=== PATIENT | female | born 1970 | race Two or more races ===

== ENCOUNTER 2017-03-07 21:09 | Emergency (ER) | payer OTHER ==
[2017-03-07 21:23] VITALS: BP 117/81; PULSE 72; TEMP 98.3; BMI 23.8
--- NOTE | 2017-03-07 22:10 | PDOC ---
History of Present Illness - General Chief Complaint: Injury Stated Complaint: PAIN Time Seen by Provider: 03/07/17 21:29 History Source: Patient Exam Limitations: No Limitations - History of Present Illness Initial Comments: 03/07/17 22:57 This is a 46-year-old female who comes in complaining of pain in her back. Patient said that earlier in the day approximately 12 noon she was vacuuming the stairs when she lost her balance slipped fell injuring her back. Patient said she may have passed out briefly from the pain but thinks she did not hit her head. Patient denies any headache, head pain, blurry vision or nausea. Patient denies any neck pain. Patient's only complaint of pain in her mid back and lower back area. Patient took ibuprofen 800 mg 2 earlier prior to coming in. Patient does not speak Lithuanian so national facilities manager services was used for the interpretation. PAST MEDICAL HISTORY: As per history of present illness PAST SURGICAL HISTORY: no significant history FAMILY HISTORY: no pertinant history SOCIAL HISTORY: Pt lives with family and is employed. MEDICATIONS: reviewed ALLERGIES: As per nursing notes Review of Systems General: No fevers or chills, no weakness, no weight loss HEENT: No change in vision. No sore throat,. No ear pain CardioVascular: No chest pain or shortness of breath Respiratory:No cough, or wheezing. Gastrointestinal: no nausea, vomitting, diarrhea or constipation, No rectal bleeding Genitourinary: No dysuria, hematuria, or frequency Musculoskeletal: Back pain as per history of present illness Neurologic: No headache, vertigo, dizziness or loss of consciousness Psychiatric: nor depression Skin: No rashes or easy bruising Endocrine: no increased thirst or abnormal weight change Allergic: no skin or latex allergy All other systems reviewed and normal GENERAL: The patient is awake, alert, and fully oriented, in no acute distress. HEAD: Normal with no signs of trauma. EYES: Pupils equal, round and reactive to light, extraocular movements intact, sclera anicteric, conjunctiva clear. BACK: There is moderate pain on palpation of the mid back thoracic area as well as lumbar area. Pain is more pronounced on the left with some left paraspinal discomfort on palpation. In addition to that there is also some tenderness on palpation of the left posterior ribs. In the area of the mid chest CHEST: There are good breath sounds bilateral however discomfort is exacerbation of the deep breath. EXTREMITIES: Normal range of motion, no edema. NEUROLOGICAL: Normal speech, normal gait. PSYCH: Normal mood, normal affect. SKIN: Warm, Dry, normal turgor, no rashes or lesions noted. 03/07/17 23:34 X-ray was read and reviewed by the radiologist there is no acute pathology of the chest, ribs, thoracic or lumbar spine. Assessment and plan: This is a 46-year-old female who fell while vacuuming the stairs injuring her back. Patient came in complaining of back pain. Patient had x-rays of her back and ribs that were negative for any acute fractures or pathology. Patient given prescription for Naprosyn and the will follow-up with her primary care doctor Past History - Past Medical History Allergies/Adverse Reactions: Allergies Allergy/AdvReac Type Severity Reaction Status Date / Time Beef Containing Products Allergy Mild Itching Verified 08/05/16 12:16 EGGPLANT Allergy Mild Itching Uncoded 08/05/16 12:16 Home Medications: Ambulatory Orders Calcium Carbonate/Vitamin D3 [Calcium 600-Vit D3 400 Tablet] 1 each PO DAILY 08/11 Famotidine [Heartburn Prevention] 10 mg PO ONCE 08/05/16 Ibuprofen [Motrin -] 800 mg PO TID PRN 08/05/16 Levothyroxine [Synthroid -] 125 mcg PO DAILY 08/05/16 Loratadine [Claritin -] 10 mg PO ONCE 08/05/16 Omeprazole 40 mg PO DAILY 08/05/16 Cyclobenzaprine HCl [Flexeril 10 mg] 10 mg PO TID #21 tablet 03/07/17 Estradiol 03/07/17 Naproxen [Naprosyn -] 500 mg PO BID #14 tablet 03/07/17 GI Disorders: Yes (HEARTBURN) Thyroid Disease: Yes - Psycho/Social/Smoking Cessation Hx Anxiety: No Suicidal Ideation: No Smoking History: Never smoked Hx Alcohol Use: No Drug/Substance Use Hx: No Substance Use Type: None *Physical Exam - Vital Signs Last Vital Signs Temp Pulse Resp BP Pulse Ox 98.3 F 72 18 117/81 97 03/07/17 21:20 03/07/17 21:20 03/07/17 21:20 03/07/17 21:20 03/07/17 21:20 *DC/Admit/Observation/Transfer Diagnosis at time of Disposition: Contusion of rib, Fall (on) (from) other stairs and steps, initial encounter Back pain Qualifiers: Back pain location: thoracic back pain Chronicity: acute Back pain laterality: left Qualified Code(s): M54.6 - Pain in thoracic spine - Discharge Dispostion Disposition: HOME Condition at time of disposition: Stable Admit: No - Patient Instructions Additional Instructions: For the pain take Naprosyn 1 tablet twice a day. In addition to the Naprosyn take Flexeril one tablet 3 times a day for muscle spasm. The Flexeril will make you tired so try to limit it to the nighttime hours. You can take it during the day but do not operate a motor vehicle or do anything that requires your concentration. Return to the emergency department immediately with ANY new, persistent or worsening symptoms. Continue any medications as previously prescribed by your physician. You should follow up with your primary doctor as soon as possible regarding today's emergency department visit. . Please make sure your doctor reviews the results of your emergency evaluation. Thank you for coming to the Emergency Department today for your care. It was a pleasure to see you today. Please note that your evaluation is INCOMPLETE until you follow-up with your doctor.
[2017-03-07] MEDS ORDERED: ACETAMINOPHEN 500 MG TABLET (FP) PO ONE (22:34)
[2017-03-07] MEDS ORDERED: ACETAMINOPHEN 325 MG TABLET (FP) ONE (22:36)
== END 2017-03-07 23:42 | disposition home or self-care (01) ==
LOC: FER 21:09
PROC: 3E0333Z Introduction of Anti-inflammatory into Peripheral Vein, Percutaneous Approach (ICD-10-PCS; principal; 2017-03-07)
DX: S20.219A Contusion of unspecified front wall of thorax, initial encounter (principal); M54.6 Pain in thoracic spine; W10.9XXA Fall (on) (from) unspecified stairs and steps, initial encounter; Y93.89 Activity, other specified; Y92.009 Unspecified place in unspecified non-institutional (private) residence as the place of occurrence of the external cause
CPT/HCPCS: 71010-TC; 71101-TC; 72070-TC; 72100-TC; 96374; 99282-25

== ENCOUNTER 2019-04-27 21:53 | Emergency (ER) | payer OTHER ==
[2019-04-27 22:12] VITALS: BP 120/72; PULSE 65; TEMP 98.7; BMI 23.9
[2019-04-27] MEDS ORDERED: KETOROLAC TROMETHAMINE 60 MG/2 ML VIAL IM ONE (22:33)
[2019-04-27] MEDS ORDERED: KETOROLAC TROMETHAMINE 60 MG/2 ML VIAL ONE (22:42)
--- NOTE | 2019-04-27 23:55 | PDOC ---
Documentation entered by Ozzie Elise SCRIBE, acting as scribe for Alyx Marshall MD. Alyx Marshall MD: This documentation has been prepared by the Arik limon Juan Manue, SCRIBE, under my direction and personally reviewed by me in its entirety. I confirm that the documentation accurately reflects all work, treatment, procedures, and medical decision making performed by me. History of Present Illness - General Chief Complaint: Pain, Acute Stated Complaint: PAIN BUTTOCKS RADIATING DOWN RIGHT LEG History Source: Patient, Family Exam Limitations: No Limitations - History of Present Illness Initial Comments: 04/27/19 22:40 The patient is a 48 year old female presenting with her , with a significant past medical history of hypothyroidism s/p surgery, who presents to the ED complaining of right lower back pain radiating down her right leg. She reports that she has had this pain for the past 2 years but exacerbated today. She notes that she took Ibuprofen with no relief of her symptoms today. She describes the pain as ranging from mild to moderate. She denies any kind of fall , injury or lifting of heavy objects. The patient denies chest pain, shortness of breath, headache and dizziness. Allergies: Eggplant, beef containing products Past surgical history: Thyroid Surgery (3 years ago) Social History: No alcohol, tobacco or drug use reported GENERAL/CONSTITUTIONAL: No fever or chills. No weakness. HEAD, EYES, EARS, NOSE AND THROAT: No change in vision. No ear pain or discharge. No sore throat. CARDIOVASCULAR: No chest pain or shortness of breath. RESPIRATORY: No cough, wheezing, or hemoptysis. GASTROINTESTINAL: No nausea, vomiting, diarrhea or constipation. GENITOURINARY: No dysuria, frequency, or change in urination. MUSCULOSKELETAL: (+) Right buttocks pain with radiation down the leg to the knee. No joint or muscle swelling. No neck pain. SKIN: No rash NEUROLOGIC: No headache, vertigo, loss of consciousness, or change in strength/ sensation. ENDOCRINE: No increased thirst. No abnormal weight change. HEMATOLOGIC/LYMPHATIC: No anemia, easy bleeding, or history of blood clots. ALLERGIC/IMMUNOLOGIC: No hives or skin allergy. GENERAL: Awake, alert, and fully oriented, in no acute distress HEAD: No signs of trauma EYES: PERRLA, EOMI, sclera anicteric, conjunctiva clear ENT: Auricles normal inspection, hearing grossly normal, nares patent, oropharynx clear without exudates. Moist mucosa NECK: Normal ROM, supple, no lymphadenopathy, JVD, or masses LUNGS: Breath sounds equal, clear to auscultation bilaterally. No wheezes, and no crackles HEART: Regular rate and rhythm, normal S1 and S2, no murmurs, rubs or gallops ABDOMEN: Soft, nontender, normoactive bowel sounds. No guarding, no rebound. No masses EXTREMITIES: Normal range of motion, no edema. No clubbing or cyanosis. No cords, erythema, or tenderness NEUROLOGICAL: Cranial nerves II through XII grossly intact. Normal speech, normal gait SKIN: Warm, Dry, normal turgor, no rashes or lesions noted. Past History - Past Medical History Allergies/Adverse Reactions: Allergies Allergy/AdvReac Type Severity Reaction Status Date / Time Beef Containing Products Allergy Mild Itching Verified 04/27/19 21:55 EGGPLANT Allergy Mild Itching Uncoded 08/05/16 12:16 Home Medications: Ambulatory Orders Calcium Carbonate/Vitamin D3 [Calcium 600-Vit D3 400 Tablet] 1 each PO DAILY 08/11 Famotidine [Heartburn Prevention] 10 mg PO ONCE 08/05/16 Levothyroxine [Synthroid -] 125 mcg PO DAILY 08/05/16 Loratadine [Claritin -] 10 mg PO ONCE 08/05/16 Omeprazole 40 mg PO DAILY 08/05/16 Diclofenac Sodium 75 mg PO BID PRN #20 tablet. 04/27/19 Tizanidine HCl 2 mg PO TID PRN #12 tablet 04/27/19 COPD: No GI Disorders: Yes (HEARTBURN) Thyroid Disease: Yes - Suicide/Smoking/Psychosocial Hx Smoking History: Never smoked Have you smoked in the past 12 months: No Information on smoking cessation initiated: No Hx Alcohol Use: No Drug/Substance Use Hx: No Substance Use Type: None *Physical Exam - Vital Signs Last Vital Signs Temp Pulse Resp BP Pulse Ox 98.7 F 65 17 120/72 98 04/27/19 22:06 04/27/19 22:06 04/27/19 22:06 04/27/19 22:06 04/27/19 22:06 ED Treatment Course - Medications Given in the ED: ED Medications Discontinued Medications Generic Name Dose Route Start Last Admin Trade Name Hilda PRN Reason Stop Dose Admin Ketorolac Tromethamine 60 mg 04/27/19 22:33 04/27/19 22:45 Toradol Injection - IM 04/27/19 22:34 60 mg ONCE ONE Administration Progress Note - Progress Note Progress Note: This 48-year-old woman Presents with 1 day history of right buttock pain radiating to the posterior portion of her right leg to the level of the knee. Patient has had this pain before, although previous episodes were much milder. No acute trauma or overuse recalled. Patient has used [id number] medications (NSAID) without relief of her pain today. Exam as noted. Clinical presentation consistent with acute sciatica. Because there is been no history of acute trauma, no radiologic diagnostic testing will be performed. Toradol 60 mg IM administered. Patient had significant relief in symptoms after Toradol IM. Patient discharged with instructions to avoid strenuous exercise of her lower body for the next several days. Diclofenac 75 mg twice a day as needed, taken with food (#20) transmitted to her pharmacy. Also, because the patient described pain and spasms in her muscles, small (#12) prescription for tizanidine 2 mg up to 3 times a day as needed for muscle spasms sent to pharmacy. Patient is been cautioned that this medication will make her sleepy and she should avoid any activity requiring her full attention while taking this medication. Patient should follow-up with her own doctor within the next 5-7 days. She should return to the emergency room if she has persistent severe pain or weakness in the right leg *DC/Admit/Observation/Transfer Diagnosis at time of Disposition: Sciatica Qualifiers: Laterality: right Qualified Code(s): M54.31 - Sciatica, right side - Discharge Dispostion Disposition: HOME Condition at time of disposition: Stable - Prescriptions Prescriptions: Diclofenac Sodium 75 mg PO BID PRN #20 tablet.dr WAGNER Reason: Back Pain Tizanidine HCl 2 mg PO TID PRN #12 tablet PRN Reason: Muscle Spasms - Referrals - Patient Instructions Printed Discharge Instructions: Sciatica Additional Instructions: Rest; avoid strenuous activity for the next several days Diclofenac 75 mg twice a day as needed for pain; take with food Tizanidine 2 mg up to 3 times a day as needed for muscle spasm; this medication will make you sleepy Return to ER if you have severe, persistent pain or leg weakness Follow-up with her doctor within 1 week - Post Discharge Activity - Attestations Scribe Attestion: 04/27/19 22:13 Documentation prepared by Ozzie Elise, acting as medical billing instructor for Alyx Marshall MD
== END 2019-04-27 23:48 | disposition home or self-care (01) ==
LOC: FER 21:53
PROC: 3E0233Z Introduction of Anti-inflammatory into Muscle, Percutaneous Approach (ICD-10-PCS; principal; 2019-04-27)
DX: M54.31 Sciatica, right side (principal); R12 Heartburn
CPT/HCPCS: 99281-25

== ENCOUNTER 2019-04-29 19:59 | Emergency (ER) | payer OTHER ==
[2019-04-29 20:15] VITALS: BP 155/92; PULSE 68; TEMP 98.2; BMI 23.9
[2019-04-29] MEDS ORDERED: KETOROLAC TROMETHAMINE 60 MG/2 ML VIAL IM ONE (21:24)
[2019-04-29] MEDS ORDERED: KETOROLAC TROMETHAMINE 60 MG/2 ML VIAL ONE (21:26)
--- NOTE | 2019-04-29 21:36 | PDOC ---
History of Present Illness - General Chief Complaint: Pain Stated Complaint: LOW BACK PAIN, BUTTOCK, RT LEG PAIN Time Seen by Provider: 04/29/19 20:21 History Source: Patient, Family Exam Limitations: Language Barrier (Slovenian speaking, communication through phone verification engineer) - History of Present Illness Initial Comments: 04/29/19 21:38 Ms. Wise is a 48 y/o Slovenian speaking woman with hx hypothyroidism presenting with severe pain down her R leg. She was evaluated here two days ago on 2018 for R leg pain, and was diagnosed with sciatica. At that time she was administered 60 mg IM Toradol and prescribed Diclofenac and tizanidine, which she reports did not alleviate the pain significantly. She has not taken anything else to control the pain. Medical interview conducted via phone verification engineer line. She reports that the pain worsened since Friday, rated the pain "more than 10"/10, and described the pain as burning, shooting, and constant. She reports that the pain is making it difficult to sleep, and that she has difficulty sitting down secondary to pain. She denies any fevers, localized vertebral pain, saddle anesthesia, incontinence, injection drug use, recent infections, or leg weakness. She reports that her L leg feels normal with no pain. Timing/Duration: constant Severity: severe Associated Symptoms: denies: chest pain, cough, fever/chills, rash, shortness of breath, syncope, weakness Past History - Past Medical History Allergies/Adverse Reactions: Allergies Allergy/AdvReac Type Severity Reaction Status Date / Time Beef Containing Products Allergy Mild Itching Verified 04/29/19 20:01 shrimp Allergy Verified 04/29/19 20:01 EGGPLANT Allergy Mild Itching Uncoded 08/05/16 12:16 JACKFRUIT Allergy Uncoded 04/29/19 20:01 Home Medications: Ambulatory Orders Calcium Carbonate/Vitamin D3 [Calcium 600-Vit D3 400 Tablet] 1 each PO DAILY 08/11 Famotidine [Heartburn Prevention] 10 mg PO HS 08/05/16 Levothyroxine [Synthroid -] 125 mcg PO DAILY 08/05/16 Loratadine [Claritin -] 10 mg PO HS 08/05/16 Omeprazole 40 mg PO DAILY 08/05/16 Diclofenac Sodium 75 mg PO BID PRN #20 tablet. 04/27/19 Tizanidine HCl 2 mg PO TID PRN #12 tablet 04/27/19 Acetaminophen [Tylenol -] 500 mg PO Q4H #100 tablet 04/29/19 Lidocaine 5% Patch [Lidoderm -] 1 patch TP DAILY #5 patch 04/29/19 COPD: No GI Disorders: Yes (ACID REFLUX) Thyroid Disease: Yes - Suicide/Smoking/Psychosocial Hx Smoking History: Never smoked Have you smoked in the past 12 months: No Information on smoking cessation initiated: No Hx Alcohol Use: No Drug/Substance Use Hx: No Substance Use Type: None Review of Systems - Review of Systems Able to Perform ROS?: Yes Is the patient limited Serbian proficient: No Constitutional: Yes: See HPI HEENTM: Yes: See HPI Respiratory: Yes: See HPI Cardiac (ROS): Yes: See HPI : Yes: See HPI. No: Frequency, Incontinence, Pain Musculoskeletal: Yes: See HPI, Back Pain, Other (Shooting pain "up and down" R leg originating at base of R leg) Integumentary: Yes: See HPI. No: Erythema, Pruritus, Rash Neurological: Yes: See HPI. No: Headache, Numbness, Paresthesia, Tingling, Weakness, Unsteady Gait *Physical Exam - Vital Signs Last Vital Signs Temp Pulse Resp BP Pulse Ox 98.2 F 68 18 155/92 97 04/29/19 20:00 04/29/19 20:00 04/29/19 20:00 04/29/19 20:00 04/29/19 20:00 - Physical Exam General Appearance: Yes: Nourished, Appropriately Dressed, Apparent Distress HEENT: positive: EOMI, DAMIEN, Normal Voice Neck: positive: Trachea midline Respiratory/Chest: positive: Lungs Clear, Normal Breath Sounds. negative: Respiratory Distress, Accessory Muscle Use Cardiovascular: positive: Regular Rhythm, Regular Rate, S1, S2. negative: Murmur, Tachycardia Gastrointestinal/Abdominal: positive: Normal Bowel Sounds, Soft. negative: Tender Musculoskeletal: positive: Normal Inspection, Other (Positive straight leg raise on R leg. Negative straight leg raise on L. ). negative: Vertebral Tenderness Extremity: positive: Normal Capillary Refill, Normal Inspection, Normal Range of Motion. negative: Coldness, Calf Tenderness, Erythema, Inflammation Integumentary: positive: Normal Color, Dry, Warm. negative: Erythema Neurologic: positive: Fully Oriented, Alert, Normal Mood/Affect ED Treatment Course - Medications Given in the ED: ED Medications Discontinued Medications Generic Name Dose Route Start Last Admin Trade Name Hilda PRN Reason Stop Dose Admin Ketorolac Tromethamine 60 mg 04/29/19 21:24 04/29/19 21:29 Toradol Injection - IM 04/29/19 21:25 60 mg ONCE ONE Administration Medical Decision Making - Medical Decision Making 04/29/19 22:03 48 y/o F with hx hypothyroidism recently diagnosed with sciatica p/w ongoing shooting R leg pain, consistent with ongoing sciatica. Plan for IM toradol, po prednisone for pain control. Counseled regarding sciatica treatment course, plan to refer to orthopedics for follow up. Plan: Orthopedics referral for sciatica management IM Toradol 60 mg for pain control once in ED PO Prednisone 60 mg for pain control once in ED 5% lidocaine patch for home use for pain control Tylenol extra strength q4h at home prn pain *DC/Admit/Observation/Transfer Diagnosis at time of Disposition: Sciatica Qualifiers: Laterality: right Qualified Code(s): M54.31 - Sciatica, right side - Discharge Dispostion Disposition: HOME Condition at time of disposition: Stable Decision to Admit order: No - Prescriptions Prescriptions: Acetaminophen [Tylenol -] 500 mg PO Q4H #100 tablet Lidocaine 5% Patch [Lidoderm -] 1 patch TP DAILY #5 patch - Referrals Referrals: Balaji Gomez MD [Staff Physician] - - Patient Instructions Printed Discharge Instructions: Sciatica, DI for Sciatica Additional Instructions: You were evaluated in the Emergency Department by Dr. Hand and Dr. Mcneill for pain down your leg. We conducted a physical exam, asked a medical history, evaluated your symptoms, and administered an injectable and an oral steroid medication to help control your pain. We are diagnosing you with sciatica, a condition that can cause pain down one leg. This condition can take time to improve, and the pain may come and go in the meantime. We are referring you to an orthopedic doctor to follow up with regarding the sciatica. In the meantime, we are prescribing you a lidocaine 5% patch which you can apply to your back that may help relieve the pain. Additionally, you can take extra strength tylenol every 4 hours to help control the pain. Please return to the Emergency Department if you develop any weakness, incontinence, fevers, or numbness. - Post Discharge Activity
[2019-04-29] MEDS ORDERED: predniSONE 20 MG TABLET (UD) ONE (21:41)
--- NOTE | 2019-04-29 21:54 | PDOC ---
Documentation entered by Dawit Chavez SCRIBE, acting as scribe for Lorna Lloyd MD. Lorna Lloyd MD: This documentation has been prepared by the Scott limon Aiswarya, SCRIBE, under my direction and personally reviewed by me in its entirety. I confirm that the documentation accurately reflects all work, treatment, procedures, and medical decision making performed by me. Attending Attestation - Resident Resident Name: [facility] - ED Attending Attestation I have performed the following: I have examined & evaluated the patient, The case was reviewed & discussed with the resident, I agree w/resident's findings & plan, Exceptions are as noted - HPI HPI: 04/29/19 21:42 The patient is a 46 year old female, with a significant PMH of sciatic and hyperthyroidism, who presents to the emergency department with right sided leg pain with sciatica that began 2 days ago. The patient states the constant burning and shooting pain is located to the right sciatica notch. Patient reports coming to the ER two days ago for the same pain and was given Toradol. She reports pain has progressively worsened since then and wakes her up at night. The patient denies any numbness or tingling. Denies any other injury. Denies difficulty ambulating. Denies fever, chills, nausea, vomit, diarrhea and constipation. PAST MEDICAL HISTORY: no significant history PAST SURGICAL HISTORY: no significant history FAMILY HISTORY: no pertinent history SOCIAL HISTORY: Pt lives with family and is employed. MEDICATIONS: reviewed ALLERGIES: As per nursing notes Adult ROS General: No fevers or chills, no weakness, no weight loss HEENT: No change in vision. No sore throat,. No ear pain CardioVascular: No chest pain or shortness of breath Respiratory:No cough, or wheezing. Gastrointestinal: no nausea, vomiting, diarrhea or constipation, No rectal bleeding Genitourinary: No dysuria, hematuria, or frequency Musculoskeletal: +Right leg pain Neurologic: No headache, vertigo, dizziness or loss of consciousness Psychiatric: nor depression Skin: No rashes or easy bruising Endocrine: no increased thirst or abnormal weight change Allergic: no skin or latex allergy All other systems reviewed and normal - Physicial Exam PE: 04/29/19 21:43 GENERAL: The patient is awake, alert, and fully oriented, in no acute distress. HEAD: Normal with no signs of trauma. EYES: Pupils equal, round and reactive to light, extraocular movements intact, sclera anicteric, conjunctiva clear. EXTREMITIES: +Tenderness on palpation to the right sciatic notch. No lumbar, sacral spin. Positive straight leg right. Neurovascular intact. NEUROLOGICAL: Normal speech, normal gait. PSYCH: Normal mood, normal affect. SKIN: Warm, Dry, normal turgor, no rashes or lesions noted. - Medical Decision Making 04/29/19 21:53 Assessment and plan: This is a 48-year-old female with history of sciatica was here 2 days ago and treated with muscle relaxants and anti-inflammatories. Patient now returns saying that the medication is not controlling her discomfort. Patient exam was unchanged from 2 days ago and she has no neurological deficits. Patient given Toradol, prednisone, told to take Tylenol in addition to her medications and a prescription for a lidocaine patch. Patient also given an orthopedic referral. Patient discharged home with her .
[2019-04-30] MEDS ORDERED: predniSONE 20 MG TABLET (UD) PO ONE (21:42)
== END 2019-04-29 22:00 | disposition home or self-care (01) ==
LOC: FER 19:59
PROC: 3E0233Z Introduction of Anti-inflammatory into Muscle, Percutaneous Approach (ICD-10-PCS; principal; 2019-04-29)
DX: M54.31 Sciatica, right side (principal); E03.9 Hypothyroidism, unspecified
CPT/HCPCS: 99282-25

== ENCOUNTER 2025-08-13 00:02 | Emergency (ER) | payer OTHER ==
[2025-08-13 00:13] VITALS: BP 133/89; PULSE 82; RESP 18; TEMP 97.6; BMI 24.0
[2025-08-13] MEDS ORDERED: ACETAMINOPHEN 500 MG TABLET (FP) ONE (00:30)
[2025-08-13] MEDS: ACETAMINOPHEN 500 MG TABLET (FP) PO ONE (00:30)
== END 2025-08-13 01:37 | disposition home or self-care (01) ==
LOC: FER 00:02
DX: S00.83XA Contusion of other part of head, initial encounter (principal); W22.8XXA Striking against or struck by other objects, initial encounter
CPT/HCPCS: 70486-TC; 99284-25